=== PATIENT | male | born 1960 | race Native Hawaiian/Other Pacific Islander ===

== ENCOUNTER 2021-05-22 12:00 | Outpatient (CLI) | payer OTHER ==
[2021-05-22 12:16] LABS: PLATELET COUNT 277 K/uL (142-355)
[2021-05-22 12:42] LABS: POTASSIUM 4.5 mmol/L (3.6-5.2)
== END 2021-05-22 19:44 | disposition home or self-care (01) ==
LOC: LAB 12:00
PROVIDERS: ATTEND Internal Medicine Infectious Disease
DX: R06.02 Shortness of breath (principal); E87.1 Hypo-osmolality and hyponatremia
CPT/HCPCS: 80053; 85027; 85652; 86140